=== PATIENT | male | born 1965 | race Caucasian/White ===

== ENCOUNTER → 2023-08-15 04:17 | Outpatient (CLI) | payer BC, SELFPAY ==
--- NOTE | 2023-08-15 14:15 | DI.RAD_ITS ---
Exam(s) XR CERVICAL SPINE COMP 4-5V EXAM: XR CERVICAL SPINE COMP 4-5V CLINICAL HISTORY: NECK PAIN, M54.2. TECHNIQUE: 2D digital imaging was performed. Five views were performed. COMPARISON: No exams were available for comparison FINDINGS: BONES: No fracture or destructive lesion. Vertebral bodies are unremarkable. DISKS: Mild narrowing of the C4-5 disc space. Moderate narrowing of the C5-6 and C6-7 disc spaces. Small endplate osteophytes at these levels. Bilateral neural foraminal narrowing at C6-7, greater on the left. ALIGNMENT: Cervical spinal alignment is within normal limits. The odontoid and atlantoaxial articulat ions are normal. SOFT TISSUE: Normal. The lung apices are clear. IMPRESSION: Degenerative changes greatest at C6-7. DATA REPOSITORY: RADIATION DOSE DELIVERED:
== END ==
PROVIDERS: PCP Nurse Practitioner Family; Visit Provider Nurse Practitioner Family
DX: M50.123 Cervical disc disorder at C6-C7 level with radiculopathy (principal)
CPT/HCPCS: 72050

== ENCOUNTER → 2023-10-04 04:25 | Outpatient (CLI) | payer BC, SELFPAY ==
--- NOTE | 2023-10-04 | DI.DEXA_ITS ---
Exam(s) XR DEXA BONE DENSITY W/WO ANSELMO EXAM: XR DEXA BONE DENSITY W/WO ANSELMO CLINICAL HISTORY: BONE DENSITY BELOW RANGE,ABNL FINDINGS ON XRAY,R93.7 TECHNIQUE: COMPARISON: No exams were available for comparison FINDINGS: Lateral Spine Image: Unremarkable. No compression deformities identified. Left hip: Total T-Score: -1.8 Total Z-Score: -1.3 T- and Z-scores: Findings are consistent with osteopenia. Lumbar Spine: Total T-Score: -2.9 Total Z-Score: -2.3 T- and Z-scores: Findings are consistent with osteoporosis. Left forearm: Total T-score of -3.5 and total Z-score of -2.8 consistent with osteoporosis. IMPRESSION: Osteoporosis in the lumbar spine and left forearm.
--- NOTE | 2023-10-04 14:23 | DI.RAD_ITS ---
Exam(s) XR WRIST RT COMPLETE EXAM: XR WRIST RT COMPLETE CLINICAL HISTORY: RT WRIST PAIN,M25.531. TECHNIQUE: 2D digital imaging was performed of the right wrist. Three views were obtained. PA, lat eral and oblique views were obtained. COMPARISON: No exams were available for comparison FINDINGS: BONES: No acute fracture is present. No bony destructive lesion is seen. There is a 6 mm metallic den sity in the anterior aspect of the neck of the 5th metacarpal bone. JOINTS: The carpal bones are normally aligned. The joint spaces are well maintained. The soft tissue s are unremarkable. SOFT TISSUE: Normal. IMPRESSION: 1. No acute fracture or dislocation. 2. No significant arthrosis. 3. 2 mm metallic density in the distal aspect of the right 5th metacarpal bone. Please correlate wit h any history of trauma or surgery. DATA REPOSITORY: RADIATION DOSE DELIVERED:
== END ==
PROVIDERS: PCP Nurse Practitioner Family; Visit Provider Nurse Practitioner Family
DX: M25.531 Pain in right wrist; R93.7 Abnormal findings on diagnostic imaging of other parts of musculoskeletal system
CPT/HCPCS: 77080; 73110

== ENCOUNTER → 2023-10-09 14:59 | Outpatient (CLI) | payer BC, SELFPAY ==
--- NOTE | 2023-10-09 | DI.RAD_ITS ---
Exam(s) XR HIP RT COMPLETE AP PELVIS EXAM: XR HIP RT COMPLETE AP PELVIS CLINICAL HISTORY: PAIN IN R HIP, M25.551. TECHNIQUE: 2D digital imaging was performed. COMPARISON: No exams were available for comparison FINDINGS: 3 views No evidence of acute pelvic nor hip fracture. No hip joint space narrowing. Two additional views of the right hip reveal no joint space narrowing and no osteophytes. Bone density normal. No osseous lesions. Sacroiliac joints unremarkable. IMPRESSION: No significant osseous findings in the pelvis and hips. DATA REPOSITORY: RADIATION DOSE DELIVERED:
== END ==
PROVIDERS: PCP Nurse Practitioner Family; Visit Provider Nurse Practitioner Family
DX: M25.551 Pain in right hip (principal)
CPT/HCPCS: 73502

== ENCOUNTER 2023-12-17 09:51 | Outpatient (REF) | payer BC, SELFPAY ==
[2023-12-17 18:53] LABS: Creatinine,24hr Ur 2.07 g/24hr (0.95-2.49); Creatinine,Urine 79.51 mg/dL; Total Volume 2600 ml
[2023-12-24 12:32] LABS: Calcium Urine 10.9 mg/dL (See Note); Calcium Urine 24 hr 283 mg/24hr (100-300); Timed Urine Volume 2600 mL
== END 2023-12-17 09:52 | disposition home or self-care (01) ==
LOC: LBN 09:51
PROVIDERS: PCP Nurse Practitioner Family; Visit Provider Internal Medicine Endocrinology, Diabetes & Metabolism
DX: M81.0 Age-related osteoporosis without current pathological fracture (principal)
CPT/HCPCS: 82340; 82570

== ENCOUNTER 2024-02-21 02:19 | Outpatient (CLI) | payer BC, SELFPAY ==
--- NOTE | 2024-02-21 14:13 | DI.RAD_ITS ---
Exam(s) XR LUMBAR SPINE COMPLETE EXAM: XR LUMBAR SPINE COMPLETE CLINICAL HISTORY: chronic low back pain,OSTEOPOROSIS,M54.50,M81.0. TECHNIQUE: 2D digital imaging was performed. Five views. COMPARISON: CR XR DEXA BONE DENSITY W/WO ANSELMO from 10/04/2023 FINDINGS: BONES: No fracture or destructive lesion. Vertebral body heights are maintained. Mild facet hypert rophy identified . DISKS: Intervertebral disc spaces are maintained. ALIGNMENT: Lumbar spinal alignment is within normal limits. SOFT TISSUE: Normal. IMPRESSION: Unremarkable radiographs of the lumbar spine. DATA REPOSITORY: RADIATION DOSE DELIVERED:
== END 2024-02-21 02:39 ==
LOC: DI 02:20
PROVIDERS: PCP Nurse Practitioner Family; Visit Provider Nurse Practitioner Family
DX: M54.59 Other low back pain (principal)
CPT/HCPCS: 72110

== ENCOUNTER 2024-03-31 01:49 | Outpatient (CLI) | payer BC, SELFPAY ==
--- NOTE | 2024-03-31 07:30 | DI.MRI_ITS ---
Exam(s) MR CERVICAL SPINE WO EXAM: MR CERVICAL SPINE WO CLINICAL HISTORY: chronic neck pain,cervical spondylosis,m54.2,m47.812 TECHNIQUE: Multiplanar multisequence MRI of the cervical spine was performed without intravenous con trast. COMPARISON: CR XR CERVICAL SPINE COMP 4-5V from 08/15/2023 FINDINGS: BONES: Vertebral body heights are maintained. There are mild degenerative changes seen in the cervica l spine at C 4 5. alignment is normal. Bone marrow signal intensity is within normal limits. CERVICAL CORD: Craniovertebral junction is unremarkable. The cervical cord is normal size and signal intensity. SOFT TISSUES: Unremarkable. C2-3: No disc herniation or bulge is identified. No significant central spinal canal or neural forami nal stenosis. C3-4: No disc herniation or bulge is identified. No significant central spinal canal or neural forami nal stenosis C4-5: No disc herniation or bulge is identified. No significant central spinal canal or neural forami nal stenosis C5-6: No disc herniation or bulge is identified. No significant central spinal canal or neural forami nal stenosis C6-7: No disc herniation or bulge is identified. No significant central spinal canal or neural forami nal stenosis C7-T1: No disc herniation or bulge is identified. No significant central spinal canal or neural ben inal stenosis IMPRESSION: Mild degenerative changes seen in the cervical spine but no significant central spinal canal or neura l foraminal stenosis is present. DATA REPOSITORY:
== END 2024-03-31 02:09 ==
LOC: DI 01:49
PROVIDERS: PCP Nurse Practitioner Family; Visit Provider Anesthesiology Pain Medicine
DX: M47.812 Spondylosis without myelopathy or radiculopathy, cervical region (principal)
CPT/HCPCS: 72141

== ENCOUNTER 2024-05-26 02:29 | Outpatient (CLI) | payer BC, SELFPAY ==
[2024-05-26 08:05] LABS: Hemoglobin A1C 5.2 % (<5.7)
[2024-05-26 08:22] LABS: Calculated LDL 135 mg/dL (<100); Cholesterol 227 mg/dL (<200); HDL Cholesterol 74 mg/dL (40-60); Triglyceride 93 mg/dL (<150)
== END 2024-05-26 02:30 | disposition home or self-care (01) ==
LOC: LBO 02:29
PROVIDERS: PCP Nurse Practitioner Family; Visit Provider Nurse Practitioner Family
DX: Z00.00 Encounter for general adult medical examination without abnormal findings (principal)
CPT/HCPCS: 36415; 80061; 83036

== ENCOUNTER 2024-07-14 02:15 | Outpatient (CLI) | payer BC, SELFPAY ==
[2024-07-14 19:04] LABS: PSA, Screening 1.4 ng/mL (<=4.5)
[2024-07-17 16:35] LABS: Apolipoprotein B, Serum 97 mg/dL; Beta VLDL Cholesterol Not Detected mg/dL (<15); Beta VLDL Triglycerides Not Detected mg/dL (<15); Cholesterol, Total, CDC 213 mg/dL; Chylomicron Cholesterol Not Detected; Chylomicron Triglycerides Not Detected; HDL Cholesterol, CDC 51 mg/dL (>=40); LDL Cholesterol 135 mg/dL; LDL Triglycerides 40 mg/dL (<=50); Lp(a) Cholesterol <5 mg/dL (<5); LpX Not detected; Triglycerides, CDC 105 mg/dL; VLDL Cholesterol 27 mg/dL (<30); VLDL Triglycerides 49 mg/dL (<120)
== END 2024-07-14 02:16 | disposition home or self-care (01) ==
PROVIDERS: PCP Nurse Practitioner Family; Visit Provider Nurse Practitioner Family
DX: Z80.42 Family history of malignant neoplasm of prostate (principal); Z00.00 Encounter for general adult medical examination without abnormal findings
CPT/HCPCS: 36415; 80061; 84153; 82172; 82664

== ENCOUNTER 2024-09-12 01:10 | Outpatient (CLI) | payer BC, SELFPAY ==
[2024-09-12 09:06] LABS: Anion Gap 5.4 mmol/L (3-11); BUN 18 mg/dL (7-18); CO2 33.6 mmol/L (21.0-32.0); CREATININE 1.4 mg/dL (0.70-1.30); Calcium 9.5 mg/dL (8.5-10.1); Chloride 104 mmol/L (98-107); Estimated GFR 57.18 (mL/min/1.73m2); Glucose 93 mg/dL (74-106); Potassium 4.5 mmol/L (3.5-5.1); Sodium 143 mmol/L (136-145)
[2024-09-12 09:43] LABS: Vitamin D 25 Total 35 ng/mL (30-100)
[2024-09-15 12:52] LABS: Beta-CrossLaps (B-CTx) 460 pg/mL
[2024-09-16 15:55] LABS: Procollagen I IntactN-Terminal 87 mcg/L (22-87)
== END 2024-09-12 01:11 | disposition home or self-care (01) ==
LOC: LBO 01:11
PROVIDERS: PCP Nurse Practitioner Family; Visit Provider Internal Medicine
DX: M81.0 Age-related osteoporosis without current pathological fracture (principal)
CPT/HCPCS: 36415; 80048; 82306; 82523; 83519; 84080